=== PATIENT | female | born 1995 | race American Indian/Alaskan Native ===

== ENCOUNTER 2022-08-18 10:35 | Outpatient (REF) | payer BC, SELFPAY ==
[2022-08-18 10:47] LABS: MANUAL DIFF FLAG NO
[2022-08-18 11:33] LABS: Basophils Percent Auto 0.2 % (0-2); Eosinophils Absolute Auto 0.1 X10*3/uL (0.0-0.4); Eosinophils Percent Auto 1.5 % (0-4); Hematocrit 41.2 % (37.0-47.0); Hemoglobin 13.2 g/dl (12.0-16.0); Imm Gran Abs Auto 0.01 X10*3/uL (0.00-0.03); Imm Gran Pct Auto 0.2 % (0.0-0.4); Lymphocytes Percent Auto 41.9 % (20-40); Mean Corpuscular Hemoglobin 26.7 pg (27.0-33.0); Mean Corpuscular Volume 83.2 fL (80.0-98.0); Mean Platelet Volume 9.2 fL (9.4-12.3); Monocytes Absolute Auto 0.6 X10*3/uL (0.1-1.2); Monocytes Percent Auto 11.9 % (2-11); Neutrophils Absolute Auto 2.1 x10*3/uL (2.0-8.3); Neutrophils Percent Auto 44.3 % (45-73); Platelet Count 334 X10*3/uL (160-400); Red Blood Count 4.95 X10*6/uL (4.20-5.50); Red Cell Distribution Width 13.2 % (11.0-16.0); White Blood Count 4.8 X10*3/uL (4.8-10.8)
[2022-08-18 11:38] LABS: Estimated Average Glucose 111 mg/dL; Hemoglobin A1c % 5.5 %
[2022-08-18 12:20] LABS: Alanine Aminotransferase 68 U/L (0-31); Albumin Level 4.4 g/dL (3.5-5.0); Alkaline Phosphatase 77 U/L (39-117); Anion Gap 13 (12-20); Aspartate Amino Transferase 29 U/L (5-31); Bilirubin Total 0.7 mg/dL (0.0-1.0); Blood Urea Nitrogen 14 mg/dL (9-16); Calcium 9.2 mg/dL (8.4-10.2); Carbon Dioxide 23 mmol/L (22-29); Chloride 106 mmol/L (96-108); Cholesterol 184 mg/dL; Estimated Glomerular Filt Rate > 60; Glucose Random 94 mg/dL (60-115); HDL Cholesterol 37 mg/dL; LDL Cholesterol Calculated 120 mg/dl; Potassium 4.5 mmol/L (3.3-5.1); Sodium 137 mmol/L (135-145); Total Protein 7.7 g/dL (6.5-8.0); Triglycerides 138 mg/dL
[2022-08-18 12:35] LABS: TSH reflex Free T4 1.03 uIU/mL (0.32-4.0)
== END 2022-08-18 10:36 | disposition home or self-care (01) ==
LOC: HO.LAB 10:35
PROVIDERS: PCP Nurse Practitioner Family; Visit Provider Nurse Practitioner Family
DX: Z13.0 Encounter for screening for diseases of the blood and blood-forming organs and certain disorders involving the immune mechanism (principal); Z13.220 Encounter for screening for lipoid disorders; Z13.29 Encounter for screening for other suspected endocrine disorder; I10 Essential (primary) hypertension; Z13.1 Encounter for screening for diabetes mellitus; Z83.3 Family history of diabetes mellitus
CPT/HCPCS: 36415; 80053; 80061; 83036; 84443; 85025

== ENCOUNTER 2022-11-17 11:29 | Outpatient (AMB) | payer BC, SELFPAY ==
--- NOTE | 2022-11-17 11:33 | A.OFFPC_ITS ---
Vital Signs 11/17/22 11:34 Height 5 ft 6 in Weight 226 lb 2 oz BMI 36.5 BP 128/72 Blood Pressure Location Lt brachial Position Sitting Pulse 79 Pulse Source Pulse Oximeter Pulse Oximetry (%) 98 Oxygen Delivery Method Room Air Intake Visit Reasons: 2 m follow up/Hypertension Intake Note: Patient is here to follow up on HTN. Wave Guide Assembler Required: No Loan Officer Assistant: Not Required per policy Accompanied by: Self / Same As Patient Allergies No Known Allergies Allergy (Verified 11/17/22 11:34) Tobacco use date assessed: 11/17/22 Dental Screening Dental Screen Date: 11/17/22 Did you have a dental visit in the last 12 months?: Yes Did you have a dental problem in the last 6 months where you did not have access to dental care?: No Was dental information given to patient?: Patient has dentist HPI HPI Comments History of Present Illness Details 27-year-old female past medical history significant for hypertension,PCOS and migraines. Patient presents today for follow-up visit. Hypertensive medication was switched to metoprolol 25 mg daily last office visit. Blood pressure below goal today at 128/72, systole has been getting blood pressures at home 150/90-95 in that swallows blood pressure reading she has had since initiating metoprolol. Patient reports that she consistently goes to the gym and follows a low-salt diet. Patient states has not yet contacted for home sleep study, will follow-up on this. [facility] Medical History (Updated 08/12/22 @ 15:08 by JOSR Tsai) Migraines PCOS (polycystic ovarian syndrome) Surgical History No pertinent past surgical history Family History Mother Hypertension TIA (transient ischemic attack) Diabetes Father Diabetes Brother Asthma Social History Housing: Apartment Alcohol intake: current Alcohol intake frequency: a few times a month Patient Tobacco Use Status: Never used Tobacco e-Cigarette/Vaping Use: Never Used Second Hand Smoke Exposure: No service: No Current occupational status: employed Current occupation: RN Cognitive needs: No Hearing needs: No Vision needs: Yes (contacts) Female Reproductive History Menstrual Age of Menarche: 10 Questionnaire Thrive Questionnaire Date Thrive assessed: 08/12/22 RAOUL-7 AMB Questionnaire RAOUL-7 Date RAOUL - 7 assessed: 08/12/22 Source: Developed by Drs. Jaden Maurice, Kelly Whatley, Flaco Lebron and colleagues, with an educational andra from [employer]. Review of Systems Const Denies chills, Denies fatigue, Denies fever(s) and Denies poor appetite Eyes Denies no additional complaints ENT Reports Normal hearing present Card Denies chest pain, Denies syncope, Denies rapid heart rate and Denies dyspnea Resp Denies cough and Denies dyspnea GI Denies change in stool character, Denies constipation, Denies diarrhea, Denies nausea and Denies vomiting Denies urinary frequency, Denies dysuria and Denies urinary urgency Neuro Reports Normal hearing present, Denies confusion and Denies syncope Psych Denies confusion Endo Denies fatigue Physical exam (Primary Care) Vital Signs: Last Vital Signs Pulse 79 11/17/22 11:34 BP 128/72 11/17/22 11:34 Pulse Ox 98 11/17/22 11:34 Oxygen Delivery Method Room Air 11/17/22 11:34 BMI result Body Mass Index 36.5 Tobacco/Smoking Status: Tobacco use Status Tobacco use date assessed 11/17/22 11/17/22 11:38 Patient Tobacco Use Status Never used Tobacco 11/17/22 11:38 e-Cigarette/Vaping Use Never Used 11/17/22 11:38 Thrive Assessment: Date of Thrive Assessment Date Thrive assessed 08/12/22 11/17/22 11:38 Const General: No confusion Orientation/consciousness: No confusion HENMT Head: Yes normocephalic and Yes atraumatic Eyes Conjunctivae: conjunctivae normal Chest Chest palpation & inspection: normal inspection of the chest Resp Effort & Inspection: normal respiratory effort Auscultation: clear to auscultation bilaterally, no crackles, no rhonchi and no wheezes Cardio Rate: regular rate Rhythm: regular rhythm Heart sounds: S1 normal heart sound present and S2 normal heart sound present GI Inspection: Yes normal to inspection Neuro General: No confusion Cranial nerves: Yes Normal hearing present Extrem General: No edema Assessment and Plan Assessment & Plan (1) Hypertension: Code(s): I10 - Essential (primary) hypertension Plan: Will increase metoprolol to 37.5 mg daily. Patient advised to continue check blood pressure at home after sitting down for 3-5 minutes and keep a log and call office with any elevated blood pressure readings. Patient advised to continue follow low-salt diet and exercise. Follow-up 3 months. Plan Follow-up in 3 months. Medications: New metoprolol tartrate 37.5 mg PO DAILY 30 tabs 3RF I10 - Essential (primary) hypertension Discontinued metoprolol tartrate Discontinued Reason: Doctor's Order 25 mg PO DAILY 30 tabs 3RF I10 - Essential (primary) hypertension Coding Level of Care Code Est Pt Level 3 (77765) Diagnoses Hypertension I10
[2022-11-17 11:34] VITALS: BP 128/72; PULSE 79; O2SAT 98; BMI 36.5
== END 2022-11-17 11:54 | disposition home or self-care (01) ==
PROVIDERS: PCP Nurse Practitioner Family; Visit Provider Nurse Practitioner Family
DX: I10 Essential (primary) hypertension (principal)
CPT/HCPCS: 99213

== ENCOUNTER 2022-12-09 13:26 | Outpatient (REF) | payer BC, SELFPAY ==
[2022-12-09 16:31] LABS: Alanine Aminotransferase 43 U/L (0-31); Albumin Level 4.5 g/dL (3.5-5.0); Alkaline Phosphatase 101 U/L (39-117); Anion Gap 15 (12-20); Aspartate Amino Transferase 23 U/L (5-31); Bilirubin Total 0.4 mg/dL (0.0-1.0); Blood Urea Nitrogen 9 mg/dL (9-16); Calcium 10.5 mg/dL (8.4-10.2); Carbon Dioxide 18 mmol/L (22-29); Chloride 108 mmol/L (96-108); Estimated Glomerular Filt Rate > 60; Glucose Random 113 mg/dL (60-115); Potassium 3.7 mmol/L (3.3-5.1); Sodium 137 mmol/L (135-145); Total Protein 8.5 g/dL (6.5-8.0)
[2022-12-09 18:50] LABS: CT PCR NOT DETECTED (Not Detect.); NG PCR NOT DETECTED (Not Detect.)
[2022-12-12 03:28] LABS: Syphilis Screen Nonreactive (Nonreactive)
[2022-12-12 03:50] LABS: HIV AB/AG Nonreactive (Nonreactive); HIV Num 1 0.06 S/CO (0.00-0.99); ~HepC Num1 0.08 S/CO (0.00-0.79); ~Hepatitis C Antibody Nonreactive (Nonreactive)
== END 2022-12-09 13:27 | disposition home or self-care (01) ==
LOC: HO.LAB 13:26
PROVIDERS: PCP Nurse Practitioner Family; Visit Provider Advanced Practice Midwife
DX: Z01.419 Encounter for gynecological examination (general) (routine) without abnormal findings (principal); Z11.4 Encounter for screening for human immunodeficiency virus [HIV]; R74.01 Elevation of levels of liver transaminase levels; L68.0 Hirsutism; E28.2 Polycystic ovarian syndrome; Z20.2 Contact with and (suspected) exposure to infections with a predominantly sexual mode of transmission
CPT/HCPCS: 0353U; 36415; 80053; 86780; 86803; 87389; 88142

== ENCOUNTER 2022-12-09 13:26 | Outpatient (AMB) | payer BC, SELFPAY ==
[2022-12-09 13:42] VITALS: BP 136/94; BMI 36.3
--- NOTE | 2022-12-09 13:42 | MHC.OFFVIS ---
Intake Vital Signs 12/09/22 13:42 Height 5 ft 6 in Weight 225 lb BMI 36.3 BP 136/94 H Intake Visit Reasons: New patient Annual Intake Note: no concerns The patient agreed to use of a senior medical director during this encounter. Scribed for JOURDAN Vick by Yina Swartz senior medical director, on 12/09/2022 at 2:08 pm EST. Associate Professor Of Biostatistics Required: No Information Interpreted: non-clinical & clinical Is Technician: Is Technician Present (Mary Escobarnelia MORLEY) Accompanied by: Self / Same As Patient Allergies No Known Allergies Allergy (Verified 12/09/22 13:45) Is last menstrual period known: Yes Last menstrual period: 10/24/22 HPI HPI Comments History of Present Illness Details She is a new patient premenopausal woman presenting for annual exam. First pelvic exam. She denies eating healthy and does not try to stay active with exercise. Currently not sexually active. Is interested in BC for cycle control except OCP's. Irregular menses skipping 3-4 months at a time; h/o PCOS from age 22. Reports hirsutism which she waxes. LMP September or October. Denies vaginal itching and irritation. STD screening and blood work offered; she accepts. Denies family hx of breast, colon and ovarian cancer. Never had a pap smear. She denies any: migraines with aura, history of DVT or pulmonary emboli, liver disease, thrombolic disorders, Lupus, +TIFFANY, or smoking. [facility] Medical History Adult BMI 36.0-36.9 kg/sq m Hirsutism Hypertension Migraines PCOS (polycystic ovarian syndrome) Surgical History No pertinent past surgical history Family History Mother Hypertension TIA (transient ischemic attack) Diabetes Father Diabetes Brother Asthma Social History Household Members: None Housing: Apartment Alcohol intake: current Alcohol intake frequency: a few times a month Patient Tobacco Use Status: Never used Tobacco e-Cigarette/Vaping Use: Never Used Second Hand Smoke Exposure: No service: No Current occupational status: employed Current occupation: RN at [employer] Sexual orientation: Straight/Heterosexual Gender identity: Female Cognitive needs: No Hearing needs: No Vision needs: Yes (contacts) Female Reproductive History Menstrual Age of Menarche: 10 Date of last menstrual period: 10/24/22 control method: none Total pregnancies: 0 Physical Exam Vital Signs: Last Vital Signs BP 136/94 H 12/09/22 13:42 BMI result Body Mass Index 36.3 Const General: cooperative, healthy appearing, no acute distress, well developed and alert Orientation/consciousness: patient oriented x3 HEENT Head: Yes normal to inspection Eyes General: appearance normal, both eyes and all related structures Neck Neck: Yes normal visual inspection Thyroid: Thyroid normal Chest Chest palpation & inspection: normal inspection of the chest Breast/axilla inspection: normal inspection of the breasts (no puckering, dimpling, peau de orange, retraction, discharge, masses) Breast/axilla palpation: normal palpation of the breasts Resp Effort & Inspection: normal respiratory effort GI Inspection: Yes normal to inspection and Yes obesity Palpation (GI): Soft to palpation (to palpation) Rectal Exam - Female: deferred General: Yes bladder normal to inspection External Female Exam: normal external appearance and normal appearance of the urethra Speculum Exam - Vagina: normal appearance of the vagina, normal palpation and normal vaginal discharge Speculum Exam - Cervix: normal appearance of the cervix and normal palpation Bimanual exam- vagina & uterus: normal palpation and normal palpation Bimanual Exam- Adnexa, other: normal adnexae and no masses Skin General skin exam: no rashes or lesions noted Neuro General: patient oriented x3 Cognition (Neuro): normal cognition Extrem General: Yes normal to inspection Psych Attitude: cooperative Thought process: Normal thought process present Assessment & Plan Assessment & Plan (1) Encounter for well woman exam: Code(s): Z01.419 - Encounter for gynecological examination (general) (routine) without abnormal findings Plan: Discussed: Current recommendations for pap smears per ASCCP guidelines. Breast awareness and periodic self breast exams. Maintaining a healthy lifestyle including a well balanced diet, (benefits for weight loss and cycling of menses), hydrate well with water and routine exercise. Encouraged to use condoms for STD and prevention if become sexually active. All of her questions and concerns were addressed to the best of my ability. RTO in one year for AG. (2) control counseling: Code(s): Z30.09 - Encounter for other general counseling and advice on contraception Plan: control options, side effects and benefits of OCP?s, Depo, IUD and Nexplanon. She opts for Mirena IUD. RTO for IUD consult. She is aware that this is approved for 8 years. Literature given, (3) Hirsutism: Comment: Discussed electrolysis, cycle of hair growth, permanent removal methods Code(s): L68.0 - Hirsutism Plan: Referral to [facility] for hirsutism and weight concerns. (4) Adult BMI 36.0-36.9 kg/sq m: Code(s): Z68.36 - Body mass index [BMI] 36.0-36.9, adult (5) Potential exposure to STD: Code(s): Z20.2 - Contact with and (suspected) exposure to infections with a predominantly sexual mode of transmission Plan: BV testing and GC/CT panel done today. STD blood work ordered. Await results and treat accordingly. Orders: Orders Pap Smear Today Z01.419 - Encounter for gynecological examination (general) (routine) without abnormal findings CT NG by PCR Today E28.2 - Polycystic ovarian syndrome, L68.0 - Hirsutism, Z01.419 - Encounter for gynecological examination (general) (routine) without abnormal findings, Z68.36 - Body mass index [BMI] 36.0-36.9, adult Hepatitis C Antibody Today Z20.2 - Contact with and (suspected) exposure to infections with a predominantly sexual mode of transmission Syphilis Screen Today Z20.2 - Contact with and (suspected) exposure to infections with a predominantly sexual mode of transmission HIV Ab/Ag Today Z20.2 - Contact with and (suspected) exposure to infections with a predominantly sexual mode of transmission Referrals Endocrinology Referral E28.2 - Polycystic ovarian syndrome, L68.0 - Hirsutism, Z68.36 - Body mass index [BMI] 36.0-36.9, adult Coding Level of Care Code New Pt Prev Care 18-39yr([id number] Diagnoses Encounter for well woman exam Z01.419 control counseling Z30.09 Hirsutism L68.0 Adult BMI 36.0-36.9 kg/sq m Z68.36 Potential exposure to STD Z20.2
== END 2022-12-09 15:27 | disposition home or self-care (01) ==
PROVIDERS: Visit Provider Advanced Practice Midwife
DX: Z01.419 Encounter for gynecological examination (general) (routine) without abnormal findings (principal); Z30.09 Encounter for other general counseling and advice on contraception; L68.0 Hirsutism; Z68.36 Body mass index [BMI] 36.0-36.9, adult; Z20.2 Contact with and (suspected) exposure to infections with a predominantly sexual mode of transmission
CPT/HCPCS: 99385

== ENCOUNTER 2023-01-04 15:17 | Outpatient (AMB) | payer BC, SELFPAY ==
[2023-01-04 15:19] VITALS: BP 146/80; BMI 36.8
--- NOTE | 2023-01-04 15:19 | MHC.OFFVIS ---
Intake Vital Signs 01/04/23 15:19 Height 5 ft 6 in Weight 228 lb BMI 36.8 BP 146/80 H Intake Visit Reasons: control consult Electrophysiologist Required: No Allergies No Known Allergies Allergy (Verified 01/04/23 15:22) Is last menstrual period known: No Post menopausal: No HPI HPI Comments History of Present Illness Details She is here for a BC consult and is interested in Mirena IUD. Have never been sexually active. Diagnosed with PCOS about 5 years ago. Reports menses every other month. LMP was in September. She denies any contraindications to control such as: migraines with aura, history of DVT or pulmonary emboli, liver disease, thrombolic disorders, Lupus, +TIFFANY, or smoking. [facility] Medical History Amenorrhea Adult BMI 36.0-36.9 kg/sq m Hirsutism Hypertension Migraines PCOS (polycystic ovarian syndrome) Surgical History No pertinent past surgical history Family History Mother Hypertension TIA (transient ischemic attack) Diabetes Father Diabetes Brother Asthma Social History Household Members: None Housing: Apartment Alcohol intake: current Alcohol intake frequency: a few times a month Patient Tobacco Use Status: Never used Tobacco e-Cigarette/Vaping Use: Never Used Second Hand Smoke Exposure: No service: No Current occupational status: employed Current occupation: RN at [employer] Sexual orientation: Straight/Heterosexual Gender identity: Female Cognitive needs: No Hearing needs: No Vision needs: Yes (contacts) Female Reproductive History Menstrual Age of Menarche: 10 Duration of menses: 3-5 days control method: none Total pregnancies: 0 Date of last pap smear: 12/12/22 (negative) Physical Exam Vital Signs: Last Vital Signs BP 146/80 H 01/04/23 15:19 BMI result Body Mass Index 36.8 Const General: cooperative, healthy appearing, comfortable, no acute distress, well developed, alert and awake Assessment & Plan Assessment & Plan (1) control counseling: Code(s): Z30.09 - Encounter for other general counseling and advice on contraception Plan: Discussed: control options, side effects and benefits of OCP?s, IUD and Nexplanon. She opts for Mirena IUD. Reviewed use, side effects and warning of IUD including pain, uterine perforation, migration, infection and bleeding. She is aware that this is approved for 8 years. She should take Ibuprofen 600 mg, 1 hour prior to procedure. Use of Provera now and to insert with the withdrawal bleed. Pt. does not want to have a bleed and prefers to return for the IUD insertion only. She has never been sexually active and denies any risks for . All of her questions and concerns were addressed to the best of my ability and shared decision making. She is agreeable to plan of care. (2) Amenorrhea: Code(s): N91.2 - Amenorrhea, unspecified Coding Level of Care Code Est Pt Level 3 (64096) Diagnoses control counseling Z30.09 Amenorrhea N91.2
== END 2023-01-04 15:44 | disposition home or self-care (01) ==
PROVIDERS: PCP Nurse Practitioner Family; Visit Provider Advanced Practice Midwife
DX: Z30.09 Encounter for other general counseling and advice on contraception (principal); N91.2 Amenorrhea, unspecified
CPT/HCPCS: 99213

== ENCOUNTER → 2023-01-04 15:17 | Outpatient (BNVA) | payer BC, SELFPAY | PROVIDERS: PCP Nurse Practitioner Family; Visit Provider Advanced Practice Midwife ==

== ENCOUNTER → 2023-02-01 15:00 | Outpatient (REF) | payer BC, SELFPAY | LOC: HO.SL 15:00 | PROVIDERS: PCP Nurse Practitioner Family; Visit Provider Nurse Practitioner Family | DX: G47.30 Sleep apnea, unspecified (principal); R06.83 Snoring | CPT/HCPCS: 95806 ==

== ENCOUNTER → 2023-02-01 15:18 | Outpatient (BNV) | payer BC, SELFPAY | PROVIDERS: PCP Nurse Practitioner Family; Visit Provider Psychiatry & Neurology Neurology | DX: R06.83 Snoring (principal) | CPT/HCPCS: 95806 ==

== ENCOUNTER 2023-02-27 08:29 | Outpatient (AMB) | payer BC, SELFPAY ==
[2023-02-27 08:40] VITALS: BP 130/90; PULSE 69; O2SAT 98; BMI 37.3
--- NOTE | 2023-02-27 08:40 | MHC.PC.OV ---
Vital Signs 02/27/23 08:40 Height 5 ft 6 in Weight 231 lb BMI 37.3 BP 130/90 H Blood Pressure Location Lt brachial Position Sitting Pulse 69 Pulse Source Pulse Oximeter Pulse Oximetry (%) 98 Oxygen Delivery Method Room Air Intake Visit Reasons: Hypertension Consultant In Ergonomics And Safety Required: No Accompanied by: Self / Same As Patient Allergies No Known Allergies Allergy (Verified 02/27/23 08:40) Tobacco use date assessed: 11/17/22 Dental Screening Dental Screen Date: 02/27/23 Did you have a dental visit in the last 12 months?: Yes Did you have a dental problem in the last 6 months where you did not have access to dental care?: No Was dental information given to patient?: Patient has dentist HPI HPI Comments History of Present Illness Details 27-year-old female past medical history significant for hypertension and migraines. Patient presents today for follow-up visit. Patients blood pressure slightly elevated office today 130/90, metoprolol previously increased to 37.5 mg daily. Patient reports home b/ps 130-140/90's. Patient requesting to go back on her lisinopril 10mg daily as it was more effective for her. Discussed if she was planning to to have children she would not be able to continue on this medication. Patient verbalizes understanding states she h=is not planning to have children and will be following up with OBGYN for IUD insertion. Patient also reports will be moving back to [place] in 2 weeks. [facility] Medical History Amenorrhea Adult BMI 36.0-36.9 kg/sq m Hirsutism Hypertension Migraines PCOS (polycystic ovarian syndrome) Surgical History No pertinent past surgical history Family History Mother Hypertension TIA (transient ischemic attack) Diabetes Father Diabetes Brother Asthma Social History Household Members: None Housing: Apartment Alcohol intake: current Alcohol intake frequency: a few times a month Patient Tobacco Use Status: Never used Tobacco e-Cigarette/Vaping Use: Never Used Second Hand Smoke Exposure: No service: No Current occupational status: employed 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 Jaden Mauriec, Kelly Whaltey, Flaco Lebron and colleagues, with an educational andra from [employer]. Review of Systems Const Denies chills, Denies fatigue, Denies fever(s) and Denies poor appetite Eyes Denies no additional complaints ENT Reports Normal hearing present Card Denies chest pain, Denies syncope, Denies rapid heart rate and Denies dyspnea Resp Denies cough and Denies dyspnea GI Denies change in stool character, Denies constipation, Denies diarrhea, Denies nausea and Denies vomiting Denies urinary frequency, Denies dysuria and Denies urinary urgency Neuro Reports Normal hearing present, Denies confusion and Denies syncope Psych Denies confusion Endo Denies fatigue Physical exam (Primary Care) Vital Signs: Last Vital Signs Pulse 69 02/27/23 08:40 BP 130/90 H 02/27/23 08:40 Pulse Ox 98 02/27/23 08:40 Oxygen Delivery Method Room Air 02/27/23 08:40 BMI result Body Mass Index 37.3 Tobacco/Smoking Status: Tobacco use Status Tobacco use date assessed 11/17/22 02/27/23 08:44 Patient Tobacco Use Status Never used Tobacco 02/27/23 08:44 e-Cigarette/Vaping Use Never Used 02/27/23 08:44 Thrive Assessment: Date of Thrive Assessment Date Thrive assessed 08/12/22 02/27/23 08:44 Const General: No confusion Orientation/consciousness: No confusion HENMT Head: Yes normocephalic and Yes atraumatic Eyes Conjunctivae: conjunctivae normal Chest Chest palpation & inspection: normal inspection of the chest Resp Effort & Inspection: normal respiratory effort Auscultation: clear to auscultation bilaterally, no crackles, no rhonchi and no wheezes Cardio Rate: regular rate Rhythm: regular rhythm Heart sounds: S1 normal heart sound present and S2 normal heart sound present GI Inspection: Yes normal to inspection Neuro General: No confusion Cranial nerves: Yes Normal hearing present Extrem General: No edema Assessment and Plan Assessment & Plan (1) Hypertension: Code(s): I10 - Essential (primary) hypertension Plan: lisinopril 10mg #90 tablets sent to patients pharmacy to allow her to have enough medications to re-establish care with pcp in [place]. B/p goal < 140/90. Follow low salt diet and excercise. Medications: New lisinopril 10 mg PO DAILY 90 tabs 0RF L68.0 - Hirsutism Discontinued metoprolol tartrate Discontinued Reason: Doctor's Order 37.5 mg PO DAILY 30 tabs 3RF I10 - Essential (primary) hypertension Coding Level of Care Code Est Pt Level 3 (76288) Diagnoses Hypertension I10
== END 2023-02-27 08:55 | disposition home or self-care (01) ==
PROVIDERS: PCP Nurse Practitioner Family; Visit Provider Nurse Practitioner Family
DX: I10 Essential (primary) hypertension (principal)
CPT/HCPCS: 99213

== ENCOUNTER 2023-03-03 11:03 | Outpatient (AMB) | payer BC, SELFPAY ==
--- NOTE | 2023-03-03 11:06 | A.OFFVIS_ITS ---
Intake Vital Signs 03/03/23 11:12 Height 5 ft 6 in Weight 229 lb 4.492 oz BMI 37.0 BP 144/92 H Intake Visit Reasons: mirena insertion Allergies No Known Allergies Allergy (Verified 02/27/23 08:40) HPI HPI Comments History of Present Illness Details The patient is here today for a Mirena reinsertion. She was counseled on the side effects including: menstrual cycle changes, pain, infection, bleeding, or expulsion. Risks of injury to the vagina, cervix, uterus, tubes, ovaries, bowel, bladder, and any adjacent tissue, resulting in nerve damage, scarring, and pain. Risks complications for the procedure that may require other test including ultrasounds, Xray, CT or MRI scan, surgery, anesthesia, blood transfusion. A urine test was completed and was negative. She was consented for the IUD insertion and has signed the consent form. All questions were answered. [facility] Medical History Amenorrhea Adult BMI 36.0-36.9 kg/sq m Hirsutism Hypertension Migraines PCOS (polycystic ovarian syndrome) Surgical History No pertinent past surgical history Family History Mother Hypertension TIA (transient ischemic attack) Diabetes Father Diabetes Brother Asthma Social History Household Members: None Housing: Apartment Alcohol intake: current Alcohol intake frequency: a few times a month Patient Tobacco Use Status: Never used Tobacco e-Cigarette/Vaping Use: Never Used Second Hand Smoke Exposure: No service: No Current occupational status: employed Current occupation: RN at [employer] Sexual orientation: Straight/Heterosexual Gender identity: Female Cognitive needs: No Hearing needs: No Vision needs: Yes (contacts) Female Reproductive History Menstrual Age of Menarche: 10 Date of last menstrual period: 02/02/23 control method: progestin IUCD Physical Exam Vital Signs: Last Vital Signs BP 144/92 H 03/03/23 11:12 BMI result Body Mass Index 37.0 Office Procedures IUD Insert/Removal Details Procedure code (CPT) selection complete Contraception Insert/Removal Details Details: IUD Insertion: The patient was placed in the dorsal lithotomy position and a sterile speculum was inserted. The procedure was completed under aseptic technique. The cervix was cleansed with a Betadine solution x 3 swabs. A single toothed tenaculum was applied to the cervix for stabilization, and the uterus was sounded to 7 cm. The device was inserted and released with a gentle motion. Bleeding from the tenaculum sites and the procedure were minimal. The strings were trimmed to 3cm. All of the equipment was removed and the bimanual was normal, no tip was palpable at the cervical os. The patient tolerated the procedure well and left the office in good condition. 30909 - Insertion Office Meds Mirena 21 mcg/24 hours (8 yrs) 52 mg intrauterine device Performing Provider: Petra Jett CNM [place] [facility] [place] [facility] Administered by: Mary Rosario CMA on 03/03/23 11:42 Dose Route Admin Location Dispensed Lot Number Expiration Date [facility] Financial [employer] 1 device intrauterine [facility] [place] 1 [id number] 01/17/25 Results AMB Test Urine AMB Test Urine Negative Last Edit by Mary Rosario CMA on 11:41 Assessment & Plan Assessment & Plan (1) Encounter for insertion of mirena IUD: Code(s): Z30.430 - Encounter for insertion of intrauterine contraceptive device Plan Post IUD Insertion Care: There may be some post insertion bleeding for several days that is usually light and can turn to a light brown or pink in color. Mild cramping may occur. Nothing in the vagina including: tampons, douching or intimacy for several days. You may take an over the counter mild analgesia like Tylenol or Advil (if no allergies), per the manufacturers recommendations on dosing and frequency. Follow the directions completely. Call the office if any: fever (over 100.4), flu like symptoms, abdominal pain, worsening cramping not resolved with over the counter medications, foul smelling vaginal odor, signs of infected appearing discharge, or heavy bleeding. Use a condom for a back up method if indicated for 7 days. Always use a condom for STI prevention; IUD's are not protective against STD's. Patient is moving back to [place] next week I advised her to see her former [employer] provider for her IUD recheck in 4-6 weeks. All of her questions and concerns were addressed to the best of my ability and shared decision making. She is agreeable to the plan of care. Orders: Orders AMB HCG Urine Test Today Z32.02 - Encounter for test, result negative AMB IUD Insertion/Removal - Practice Supplied Today Z30.430 - Encounter for insertion of intrauterine contraceptive device Coding Level of Care Code Procedure Only Diagnoses Encounter for insertion of mirena IUD Z30.430 CPT Codes Details - Contraception: 24052 - Insertion ([id number])
[2023-03-03 11:12] VITALS: BP 144/92; BMI 37.0
== END 2023-03-03 12:25 | disposition home or self-care (01) ==
PROVIDERS: PCP Nurse Practitioner Family; Visit Provider Advanced Practice Midwife
DX: Z30.430 Encounter for insertion of intrauterine contraceptive device (principal)
CPT/HCPCS: 58300

== ENCOUNTER → 2023-03-03 11:03 | Outpatient (BNVA) | payer BC, SELFPAY | PROVIDERS: PCP Nurse Practitioner Family; Visit Provider Advanced Practice Midwife | DX: Z30.430 Encounter for insertion of intrauterine contraceptive device (principal) | CPT/HCPCS: 58300; 81025; J7298 ==